=== PATIENT | male | born 1955 | race African-American/Black ===

== ENCOUNTER 2016-09-05 11:16 | Emergency (ER) | payer SELFPAY ==
--- NOTE | 2016-09-05 11:23 | ER Document Report ---
ED Medical Screen (RME) - General Stated Complaint: BLOOD PRESSURE ISSUES Notes: 61 yo male c/o blood pressure problem. Pt had elevated BP reading at dentist. Asymptomatic. No previous hx HTN. + obesity. nonsmoker. TRAVEL OUTSIDE OF THE [place] IN LAST 30 DAYS: No - Related Data Allergies/Adverse Reactions: No Known Allergies Allergy (Verified 03/12/16 23:45)
--- NOTE | 2016-09-05 11:50 | ER Document Report ---
ED General - General Chief Complaint: High Blood Pressure Stated Complaint: BLOOD PRESSURE ISSUES Mode of Arrival: Ambulatory Information source: Patient Notes: 61 yr old male presents with complaitns of high blood pressure. pt notes he is very noncompliant, has not been taking his meds written for him by the hospitalst the way he is supposed to. pt denies any complaints at all. pt notes he was supposed to have dental work performed, bp was 200s and was sent in for evaluation TRAVEL OUTSIDE OF THE [place] IN LAST 30 DAYS: No - HPI Onset: Just prior to arrival Onset/Duration: Sudden Quality of pain: No pain Severity: None Pain Level: Denies Associated symptoms: None Exacerbated by: Denies Relieved by: Denies Similar symptoms previously: Yes Recently seen / treated by doctor: Yes - Related Data Allergies/Adverse Reactions: No Known Allergies Allergy (Verified 09/05/16 11:22) Past Medical History - Social History Smoking Status: Never Smoker Cigarette use (# per day): No Chew tobacco use (# tins/day): No Smoking Education Provided: No Family History: Reviewed & Not Pertinent Patient has suicidal ideation: No Patient has homicidal ideation: No Review of Systems - Review of Systems Notes: REVIEW OF SYSTEMS: CONSTITUTIONAL : Denies fever, chills, or sweats. Denies recent illness. EENT: Denies eye, ear, throat, or mouth pain or symptoms. Denies nasal or sinus congestion or discharge. Denies throat, tongue, or mouth swelling or difficulty swallowing. CARDIOVASCULAR: Denies chest pain. Denies palpitations or racing or irregular heart beat. Denies ankle edema. RESPIRATORY: Denies cough, cold, or chest congestion. Denies shortness of breath, difficulty breathing, or wheezing. GASTROINTESTINAL: Denies abdominal pain or distention. Denies nausea, vomiting , or diarrhea. Denies blood in vomitus, stools, or per rectum. Denies black, tarry stools. Denies constipation. GENITOURINARY: Denies difficulty urinating, painful urination, burning, frequency, blood in urine, or discharge. MUSCULOSKELETAL: Denies back or neck pain or stiffness. Denies joint pain or swelling. SKIN: Denies rash, lesions or sores. HEMATOLOGIC : Denies easy bruising or bleeding. LYMPHATIC: Denies swollen, enlarged glands. NEUROLOGICAL: Denies confusion or altered mental status. Denies passing out or loss of consciousness. Denies dizziness or lightheadedness. Denies headache. Denies weakness or paralysis or loss of use of either side. Denies problems with gait or speech. Denies sensory loss, numbness, or tingling. Denies seizures. PSYCHIATRIC: Denies anxiety or stress. Denies depression, suicidal ideation, or homicidal ideation. ALL OTHER SYSTEMS REVIEWED AND NEGATIVE. Dictation was performed using [employer] voice recognition software PHYSICAL EXAMINATION: GENERAL: Well-appearing, well-nourished and in no acute distress. HEAD: Atraumatic, normocephalic. EYES: Pupils equal round and reactive to light, extraocular movements intact, sclera anicteric, conjunctiva are normal. ENT: Nares patent, oropharynx clear without exudates. Moist mucous membranes. NECK: Normal range of motion, supple without lymphadenopathy LUNGS: Breath sounds clear to auscultation bilaterally and equal. No wheezes rales or rhonchi. HEART: Regular rate and rhythm without murmurs ABDOMEN: Soft, nontender, nondistended abdomen. No guarding, no rebound. No masses appreciated. Musculoskeletal: Normal range of motion, no pitting or edema. No cyanosis. NEUROLOGICAL: Cranial nerves grossly intact. Normal speech, normal gait. Normal sensory, motor exams PSYCH: Normal mood, normal affect. SKIN: Warm, Dry, normal turgor, no rashes or lesions noted. Physical Exam - Vital signs Vitals: Pulse Resp BP Pulse Ox 97 20 164/95 H 96 09/05/16 11:21 09/05/16 11:21 09/05/16 11:21 09/05/16 11:21 Course - Re-evaluation Re-evalutation: 09/05/16 16:17 Given the patient is a symptomatic I do not believe any lab work or imaging is appropriate. Patient will be restarted on his medications and is otherwise stable for discharge to follow-up with his dentist. Patient blood pressure is improved on its own while in the ED After performing a Medical Screening Examination, I estimate there is LOW risk for ACUTE GLAUCOMA, TEMPORAL ARTERITIS, MENINGITIS, INCRANIAL HEMORRHAGE, or ISCHEMIC STROKE thus I consider the discharge disposition reasonable. The patient and I have discussed the diagnosis and risks, and we agree with discharging home with close follow-up with the understanding that symptoms and presentations can change. We also discussed returning to the Emergency Department immediately if new or worsening symptoms occur. We have discussed the symptoms which are most concerning (e.g., changing or worsening symptoms, new numbness or weakness, vomiting, fever) that necessitate immediate return. - Vital Signs Vital signs: Temp Pulse Resp BP Pulse Ox 97 20 157/82 H 96 09/05/16 11:21 09/05/16 11:21 09/05/16 12:13 09/05/16 11:21 Discharge - Discharge Clinical Impression: Noncompliance HTN (hypertension) Qualifiers: Hypertension type: essential hypertension Qualified Code(s): I10 - Essential ( primary) hypertension Condition: Stable Disposition: HOME, SELF-CARE Instructions: High Blood Pressure ([facility]) Additional Instructions: You have been given follow up instructions including low cost follow up with one of the local primary care offices. Follow up with them tomorrow for further care and reevaluation. Return immediately if symptoms worsen Prescriptions: Lisinopril/Hydrochlorothiazide [Lisinopril-Hctz 10-12.5 mg Tab] 1 each PO DAILY #30 tablet
[2016-09-05 12:13] VITALS: BP 157/82
== END 2016-09-05 12:13 | disposition home or self-care (01) ==
LOC: ER 11:16
DX: I10 Essential (primary) hypertension (principal); Z91.14 Patient's other noncompliance with medication regimen
CPT/HCPCS: 99283

== ENCOUNTER 2019-05-22 21:14 | Emergency (ER) | payer MEDICAID ==
[2019-05-22] MEDS ORDERED: ONDANSETRON HCL INJ/PF 4 MG/2 ML SDV IV ONE (21:27)
[2019-05-22] MEDS ORDERED: MORPHINE SULFATE 10 MG/ML INJ IV ONE (21:27)
--- NOTE | 2019-05-22 21:31 | ER Document Report ---
ED GI/ - General Chief Complaint: Abdominal Pain Stated Complaint: ABDOMINAL PAIN Time Seen by Provider: 05/22/19 21:19 Notes: Patient is a 64-year-old male who comes emergency department for chief complaint of a sudden onset of severe pain in his upper abdomen mainly on the left side and around to his left side. He states the pain got bad and it made him vomit. He vomited 3 times. He denies vomiting blood. He denies drinking alcohol. He denies smoking or recreational drugs. Past medical history of hypertension, hyperlipidemia, type 2 diabetes. He denies any surgeries. He denies pain in his back, pain in his chest, difficulty breathing, or any other complaints at this time. TRAVEL OUTSIDE OF THE [place] IN LAST 30 DAYS: No - Related Data Allergies/Adverse Reactions: No Known Allergies Allergy (Verified 09/05/16 11:22) Past Medical History - General Information source: Patient - Social History Smoking Status: Never Smoker Frequency of alcohol use: None Drug Abuse: None Lives with: Family Family History: Reviewed & Not Pertinent - Past Medical History Cardiac Medical History: Reports: Hx Hypercholesterolemia, Hx Hypertension Endocrine Medical History: Reports: Hx Diabetes Mellitus Type 2 - Immunizations Hx Diphtheria, Pertussis, Tetanus Vaccination: Yes Review of Systems - Review of Systems Constitutional: No symptoms reported EENT: No symptoms reported Cardiovascular: No symptoms reported Respiratory: No symptoms reported Gastrointestinal: See HPI Genitourinary: No symptoms reported Male Genitourinary: No symptoms reported Musculoskeletal: No symptoms reported Skin: No symptoms reported Hematologic/Lymphatic: No symptoms reported Neurological/Psychological: No symptoms reported Physical Exam - Vital signs Vitals: Temp Pulse Resp BP Pulse Ox 98.4 F 68 20 224/111 H 99 05/22/19 21:18 05/22/19 21:18 05/22/19 21:18 05/22/19 21:18 05/22/19 21:18 - Notes Notes: GENERAL: Patient diaphoretic, somewhat ill-appearing, appears uncomfortable HEAD: Normocephalic, atraumatic. EYES: Pupils equal, round, and reactive to light. Extraocular movements intact. ENT: Oral mucosa moist, tongue midline. Oropharynx unremarkable. Airway patent. NECK: Full range of motion. Supple. Trachea midline. LUNGS: Clear to auscultation bilaterally, no wheezes, rales, or rhonchi. No respiratory distress. HEART: Regular rate and rhythm. No murmur ABDOMEN: Soft, non-tender. Non-distended. Bowel sounds present in all 4 quadrants. GENITOURINARY: Deferred EXTREMITIES: Moves all 4 extremities spontaneously. No edema, normal radial and dorsalis pedis pulses bilaterally. No cyanosis. BACK: No CVA tenderness. No cervical, thoracic, lumbar midline tenderness. No saddle anesthesia, normal distal neurovascular exam. Moves all extremities in full range of motion. NEUROLOGICAL: Alert and oriented x3. Normal speech. Cranial nerves II through XII grossly intact. PSYCH: Restless SKIN: Diaphoretic Course - Re-evaluation Re-evalutation: Patient is ill in appearance, restless, appears to be in a lot of pain, he points to his left upper quadrant and left side for the pain but his abdomen is actually not notably tender on exam. Patient is extremely hypertensive. He denies a headache or chest pain. Ordering symptom management, placing on monitor, laboratory work-up pending, CTA will be performed to rule out dissection among other etiologies. Patient does have good distal pulses. He is not febrile or tachycardic. Patient given IV morphine, Zofran, patient states he had missed his blood pressure medications at home so he was given these as well. CT is still pending, CBC unremarkable, chemistry shows mildly elevated creatinine, mildly elevated lipase, negative troponin, otherwise unremarkable. Urinalysis shows some white blood cells and some blood but no nitrates, bacteria. Culture placed. CTA showing very small left UVJ nephrolithiasis but no other concerning findings including no aortic dissection. On reevaluation patient is very much improved, his symptoms are completely gone, he is comfortable and well-appearing, his blood pressure has come down very significantly. He has no current complaints. Patient was discussed with Dr. Valente. I did have a long discussion with patient about the possibility of admission/ transfer because of the developing infection, however because the stone is so small, already at the UVJ, and there is no fever, leukocytosis, current symptoms patient will instead be started on antibiotics with first dose now, he will follow close with urology, and will return if he worsens in any way. Patient and family state appreciation and satisfaction with this plan. Stable time of discharge. - Vital Signs Vital signs: Temp Pulse Resp BP Pulse Ox 98.4 F 68 16 178/90 H 100 05/22/19 21:27 05/22/19 21:18 05/23/19 01:01 05/23/19 01:01 05/23/19 01:01 - Laboratory Result Diagrams: 05/22/19 21:29 05/22/19 21:29 Laboratory results interpreted by me: 05/22/19 05/22/19 05/22/19 21:29 21:29 22:45 Hgb 13.1 L RDW 16.3 H Plt Count 932 H Carbon Dioxide 31 H Creatinine 1.31 H Est GFR (MDRD) Non-Af 55 L Glucose 115 H Lipase 646.0 H Urine Blood MODERATE H Ur Leukocyte Esterase SMALL H Discharge - Discharge Clinical Impression: Ureterolithiasis Abdominal pain Qualifiers: Abdominal location: upper abdomen, unspecified Qualified Code(s): R10.10 - Upper abdominal pain, unspecified Vomiting Qualifiers: Vomiting type: unspecified Vomiting Intractability: non-intractable Nausea presence: with nausea Qualified Code(s): R11.2 - Nausea with vomiting, unspecified Condition: Stable Disposition: HOME, SELF-CARE Additional Instructions: You are passing a small 2 mm kidney stone on the left side. You should pass this over the next few days. Please take the antibiotic as prescribed to avoid infection, take the pain medication if needed, take the nausea medication if needed. Follow up with the urology referral listed below. Return if you worsen including fever, uncontrolled vomiting, severe worsening pain, or any other concerning or worsening symptoms. [facility] [address] [place], [place] [id number] [facility] [address] [place], [place] [id number] Sangeetha Farrell MD Doctor in [place], [place] Address: [facility] [address] [facility] [address], [place] [address] Prescriptions: Cephalexin Monohydrate [Keflex 500 mg Capsule] 500 mg PO BID 7 Days #14 capsule Oxycodone HCl/Acetaminophen [Percocet 5-325 mg Tablet] 1 - 2 tab PO TID PRN #15 tablet PRN Reason: Ondansetron [Zofran Odt 4 mg Tablet] 1 - 2 tab PO Q4H PRN #15 tab.rapdis PRN Reason: For Nausea/Vomiting
[2019-05-22 21:41] LABS: ABSOLUTE BASOPHILS # (AUTO) 0.1 10^3/uL (0.0-0.2); ABSOLUTE EOSINOPHILS # (AUTO) 0.2 10^3/uL (0.0-0.6); ABSOLUTE LYMPHOCYTES (AUTO) 2.5 10^3/uL (0.5-4.7); ABSOLUTE MONOCYTES (AUTO) 0.7 10^3/uL (0.1-1.4); ABSOLUTE NEUT (AUTO) 5.1 10^3/uL (1.7-8.2); BASOPHILS % (AUTO) 0.6 % (0-2); HEMATOCRIT 39.4 % (37.9-51.0); HEMOGLOBIN 13.1 g/dL (13.5-17.0); LYMPHOCYTES % (AUTO) 29.3 % (13-45); MEAN CORPUSCULAR HEMOGLOBIN 28.6 pg (27.0-33.4); MEAN CORPUSCULAR HGB CONC 33.3 g/dL (32.0-36.0); MEAN CORPUSCULAR VOLUME 86 fl (80-97); MONOCYTES % (AUTO) 8.3 % (3-13); PLATELET COUNT 932 10^3/uL (150-450); RED BLOOD COUNT 4.59 10^6/uL (4.35-5.55); RED CELL DISTRIBUTION WIDTH 16.3 % (11.5-14.0); SEGMENTED NEUTROPHILS % (AUTO) 59.8 % (42-78); TOTAL CELLS COUNTED % (AUTO) 100 %; WHITE BLOOD COUNT 8.6 10^3/uL (4.0-10.5)
[2019-05-22 21:57] LABS: ALBUMIN 3.6 g/dL (3.5-5.0); ALKALINE PHOSPHATASE 94 U/L (38-126); ANION GAP 5 (5-19); ASPARTATE AMINO TRANSFERASE 37 U/L (17-59); BILIRUBIN,DIRECT 0.1 mg/dL (0.0-0.4); BILIRUBIN,TOTAL 0.5 mg/dL (0.2-1.3); BLOOD UREA NITROGEN 12 mg/dL (7-20); CALCIUM 9.7 mg/dL (8.4-10.2); CARBON DIOXIDE 31 mmol/L (22-30); CHLORIDE 104 mmol/L (98-107); GLUCOSE 115 mg/dL (75-110); POTASSIUM 4.3 mmol/L (3.6-5.0); TOTAL PROTEIN 6.6 g/dL (6.3-8.2)
--- NOTE | 2019-05-22 22:53 | RADIOLOGY REPORT (SQ) ---
EXAM DESCRIPTION: CLINICAL HISTORY: 64 years Male, severe upper abd pain, very hypertensive COMPARISON: None. TECHNIQUE: Axial images of the chest were performed utilizing intravenous contrast, with sagittal and coronal MIP images and sagittal and coronal reformatted images. This exam was performed according to our departmental dose-optimization program which includes use of Automated Exposure Control, adjustment of the mA and/or kV according to patient size and/or use of iterative reconstruction technique. FINDINGS: Images of the upper abdomen show left-sided hydronephrosis, with streaky changes in the left perirenal fat. These findings are suspicious for a left ureteral stone. No evidence of thoracic aortic aneurysm or dissection. No evidence of pulmonary infiltrate. No evidence of pneumothorax or pleural effusion. No evidence of mediastinal or hilar adenopathy. IMPRESSION: Findings are suspicious for a left ureteral stone. A CT of the abdomen and pelvis is pending. No evidence of aortic dissection.
[2019-05-22] MEDS ORDERED: NORMAL SALINE 1000 ML 1,000 ML IV ONE (22:58)
[2019-05-22] MEDS ORDERED: LISINOPRIL 10 MG TABLET PO ONE (23:02)
[2019-05-22] MEDS ORDERED: AMLODIPINE BESYLATE 10 MG TABLET PO ONE (23:02)
[2019-05-22 23:08] LABS: APPEARANCE,URINE CLEAR; BILIRUBIN,URINE NEGATIVE (NEGATIVE); COLOR,URINE YELLOW; GLUCOSE, URINE NEGATIVE (NEGATIVE); KETONES,URINE NEGATIVE (NEGATIVE); LEUKOCYTE ESTERASE,URINE SMALL (NEGATIVE); NITRITE,URINE NEGATIVE (NEGATIVE); PROTEIN,URINE NEGATIVE (NEGATIVE); URINE SPECIFIC GRAVITY 1.025; UROBILINOGEN,URINE NEGATIVE mg/dL (<2.0)
--- NOTE | 2019-05-22 23:43 | RADIOLOGY REPORT (SQ) ---
EXAM DESCRIPTION: CT abdomen pelvis with contrast CLINICAL HISTORY: 64 years Male, severe upper abd pain, very hypertensive COMPARISON: None. TECHNIQUE: Axial images of the abdomen and pelvis were performed utilizing intravenous contrast, with sagittal and coronal reformatted images. This exam was performed according to our departmental dose-optimization program which includes use of Automated Exposure Control, adjustment of the mA and/or kV according to patient size and/or use of iterative reconstruction technique. FINDINGS: There is a 2.6 x 2 x 1 mm stone at the left ureterovesical junction, with mild hydronephrosis and hydroureter. There are streaky changes in the left perirenal and left periureteral fat. There are no renal stones. No evidence of bowel obstruction. No evidence of appendicitis. There is possible fatty infiltration of the liver. There is no significant radiographic abnormality of the spleen, pancreas or adrenal glands. IMPRESSION: Left ureterovesical junction stone. Possible fatty liver.
[2019-05-23] MEDS ORDERED: ONDANSETRON ODT 4 MG TAB (6 TAB/ER DISP) PO PRN (00:57)
[2019-05-23] MEDS ORDERED: HYDROCODONE/ACETAMINOPHEN 5-325 MG (6 TAB/ER DISP) PO PRN (00:57)
[2019-05-23] MEDS ORDERED: CEPHALEXIN 500 MG CAPSULE PO ONE (00:57)
[2019-05-23 01:12] VITALS: BP 178/90
--- NOTE | 2019-05-23 08:57 | EKG REPORT ---
SEVERITY:- NORMAL ECG - SINUS RHYTHM : Confirmed by: Mateo Alanis 23-May-2019 08:57:10
== END 2019-05-23 01:15 | disposition home or self-care (01) ==
LOC: ER 21:14
DX: N20.1 Calculus of ureter (principal); R11.2 Nausea with vomiting, unspecified; R10.10 Upper abdominal pain, unspecified; E11.9 Type 2 diabetes mellitus without complications
CPT/HCPCS: 93005; 36415; 87086; 83690; 85025; 80053; 81001; 84484; 71275; 74174; 93010; J2270; J2405; J7030; J3490